=== PATIENT | female | born 1985 ===

== ENCOUNTER 2017-12-04 12:41 | Emergency (ER) | payer MEDICAID ==
[2017-12-04 12:41] VITALS: BMI 30.2
[2017-12-04 12:50] VITALS: RESP 16; TEMP 98.5
[2017-12-04] MEDS ORDERED: Sodium Chloride 0.9% 1,000 ML IV ONE (13:27)
[2017-12-04] MEDS ORDERED: Sodium Chloride 0.9% 1,000 ML ONE (13:36)
[2017-12-04 14:05] LABS: BASO # 0.1 K/uL (0.0-0.2); BASO % 1.2 % (0.0-2.0); EOS % 0.6 % (0.0-4.0); HCG,QUALITATIVE URINE NEGATIVE (NEGATIVE); HEMOGLOBIN 7.6 g/dL (11.0-16.0); LYMPH # 1.8 K/uL (1.0-4.3); LYMPH % 40.4 % (20.0-40.0); MEAN CELL VOLUME 67.9 fL (81.0-99.0); MEAN CORPUSCULAR HEMOGLOBIN 21.3 pg (27.0-31.0); MEAN CORPUSCULAR HGB CONC 31.4 g/dL (33.0-37.0); MEAN PLATELET VOLUME 7.5 fL (7.2-11.7); MONO # 0.3 K/uL (0.0-0.8); MONO % 6.6 % (0.0-10.0); NEUT # 2.3 K/uL (1.8-7.0); NEUT % 51.2 % (50.0-75.0); RBC 3.54 Mil/uL (3.80-5.20); RED CELL DISTRIBUTION WIDTH 15.9 % (11.5-14.5); WHITE BLOOD COUNT 4.4 K/uL (4.8-10.8)
[2017-12-04 14:11] LABS: SQUAMOUS EPITHIAL 1 /hpf (0-5); URINE BILIRUBIN NEGATIVE (NEGATIVE); URINE BLOOD 3+ (NEGATIVE); URINE CLARITY Clear (Clear); URINE COLOR Yellow (YELLOW); URINE GLUCOSE (UA) NORMAL (Normal); URINE LEUKOCYTE ESTERASE NEG Leu/uL (Negative); URINE PROTEIN NEGATIVE (NEGATIVE); URINE UROBILINOGEN NORMAL mg/dL (0.2-1.0)
[2017-12-04 14:20] LABS: ALB/GLOB RATIO 0.9 (1.0-2.1); ALBUMIN 4.1 g/dL (3.5-5.0); ALT/SGPT 76 U/L (9-52); AST/SGOT 66 U/L (14-36); BLOOD UREA NITROGEN 8 mg/dL (7-17); CALCIUM 9.1 mg/dl (8.6-10.4); GFR AFRICAN-AMERICAN > 60; GFR NON-AFRICAN AMERICAN > 60
[2017-12-04 15:04] VITALS: BP 133/78; PULSE 86; O2SAT 100
--- NOTE | 2017-12-04 15:21 | C.PDOC ---
History Of Present Illness 32 year old female, whose PMHx inlcudes hypothyroidism and anemia, presents to the ED for evaluation of a headache associated with dizziness and lightheadedness for 3 days. Denies h/o similar episodes. Notes her menses started 4 days ago, and her headache began the next day. Denies subjective neurological changes. Denies photophobia, nausea, vomiting, fever, chills, neck pain, weakness. Notes h/o anemia, took iron in the past though has not take them in 2 years. 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: no limitations Onset/Duration Of Symptoms: Days (3) Current Symptoms Are (Timing): Still Present Quality: Aching Associated Symptoms: denies: Nausea, Vomiting, Extremity Weakness Additional History Per: Patient Past Medical History Reviewed: Historical Data, Nursing Documentation, Vital Signs Vital Signs: Last Vital Signs Temp 98.5 F 12/04/17 15:04 Pulse 86 12/04/17 15:04 Resp 16 12/04/17 15:04 BP 133/78 12/04/17 15:04 Pulse Ox 100 12/04/17 22:11 - Medical History PMH: Hypothyroidism Surgical History: No Surg Hx Family History: States: Unknown Family Hx - Social History Hx Tobacco Use: No Hx Alcohol Use: No Hx Substance Use: No - Immunization History Hx Tetanus Toxoid Vaccination: No Hx Influenza Vaccination: No Hx Pneumococcal Vaccination: No Review Of Systems Constitutional: Negative for: Fever, Chills, Weakness Eyes: Negative for: Other (photophobia) Gastrointestinal: Negative for: Nausea, Vomiting Musculoskeletal: Negative for: Neck Pain Neurological: Positive for: Headache Physical Exam - Physical Exam Appears: Well, Non-toxic, No Acute Distress Skin: Normal Color, Warm, Dry Head: Atraumatic, Normacephalic Eye(s): bilateral: Normal Inspection, PERRL, EOMI Nose: Normal Oral Mucosa: Moist Neck: Normal ROM, Supple Chest: Symmetrical, No Deformity, No Tenderness Cardiovascular: Rhythm Regular Respiratory: Normal Breath Sounds, No Rales, No Rhonchi, No Wheezing Gastrointestinal/Abdominal: Soft, No Tenderness Extremity: Normal ROM, Capillary Refill (less than 2 seconds ) Neurological/Psych: Oriented x3, Normal Speech, Normal Cognition, Normal Cranial Nerves (2-12 grossly intact, no focal deficits) Gait: Steady ED Course And Treatment - Laboratory Results Result Diagrams: 12/04/17 13:48 12/04/17 13:48 O2 Sat by Pulse Oximetry: 100 (on RA) Pulse Ox Interpretation: Normal Progress Note: Bloodwork and urinalysis ordered and reviewed. Reglan PO, Toradol IVP, and IV Fluids administered. On re-exam, patient states she still feels dizzy and reports a room-spinning sensation. Meclizine PO administered. Patient recalls her hemoglobin was 5 when she was diagnosed with anemia. Patient has never undergone transfusion. On re-evaluation, patient is resting comfortably, is tolerating PO, and no longer has headache, neurologic deficit, photophobia, rash, fever, or nuchal rigidity. Steady gait. Case discussed with Dr. Mojica, who evaluated work up and agrees with plan and discharge. Patient was instructed to follow up with physician/clinic in 1-2 days. Disposition - Disposition Disposition: HOME/ ROUTINE Disposition Time: 15:17 Condition: STABLE Additional Instructions: Restart taking your iron medication. Follow up with your PMD tomorrow. Return to ER if symptoms persist or worsen. Reinicie tomando tran medicamento de darshana. Ifeanyi un seguimiento con tran PMD ma bertin. Regrese a la jocelyne de emergencias si los sntomas persisten o empeoran. 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 - Scribe Statement The provider has reviewed the documentation as recorded by the Scribe (Ana Lilia Blackmon) All medical record entries made by the Scribe were at my direction and personally dictated by me. I have reviewed the chart and agree that the record accurately reflects my personal performance of the history, physical exam, medical decision making, and the department course for this patient. I have also personally directed, reviewed, and agree with the discharge instructions and disposition.
== END 2017-12-04 15:28 | disposition home or self-care (01) ==
LOC: C.ER 12:41
DX: R51 Headache (principal)
CPT/HCPCS: 80053; 81001; 84443; 84703; 85025; 96361; 96374; 99284; J1885; J7030

== ENCOUNTER 2018-07-28 10:25 | Emergency (ER) | payer MEDICAID | END 2018-07-28 12:02 | disposition home or self-care (01) | LOC: C.ER 10:25 ==

== ENCOUNTER 2018-11-23 14:45 | Emergency (ER) | payer MEDICAID ==
[2018-11-23 14:45] VITALS: BMI 30.2
[2018-11-23 15:00] VITALS: BP 128/90; PULSE 90; RESP 17; TEMP 98.8; O2SAT 98
[2018-11-23] MEDS ORDERED: Amoxicillin-Clav 875-125 mg Tab PO STA (15:56)
[2018-11-23] MEDS ORDERED: Amoxicillin-Clav 875-125 mg Tab PO ONE (16:11)
--- NOTE | 2018-11-23 16:29 | C.PDOC ---
History Of Present Illness 33 year old female patient presents to the ER complaining of persistent cough for x3 weeks. Patient reports she initially had the symptom with sore throat but now she feels increase in congestion and pressure on her face and sinus. Patient denies fever, chills, headache, ear pain, chest pain, SOB, diarrhea and vomiting. Time Seen by Provider: 11/23/18 15:03 Chief Complaint (Nursing): ENT Problem History Per: Patient History/Exam Limitations: None Onset/Duration Of Symptoms: Days (x3 weeks) Current Symptoms Are (Timing): Still Present Past Medical History Reviewed: Historical Data, Nursing Documentation, Vital Signs Vital Signs: Last Vital Signs Temp 98.8 F 11/23/18 14:58 Pulse 90 11/23/18 14:58 Resp 17 11/23/18 14:58 BP 128/90 11/23/18 14:58 Pulse Ox 98 11/23/18 14:58 Primary Care Provider: Johnny Horne - Medical History PMH: Hypothyroidism Family History: States: Unknown Family Hx - Social History Hx Tobacco Use: No Hx Alcohol Use: No Hx Substance Use: No - Immunization History Hx Tetanus Toxoid Vaccination: No Hx Influenza Vaccination: No Hx Pneumococcal Vaccination: No Review Of Systems Except As Marked, All Systems Reviewed And Found Negative. Constitutional: Negative for: Fever ENT: Positive for: Throat Pain, Other (congestion and pressure of face and sinus ) Respiratory: Positive for: Cough Gastrointestinal: Negative for: Vomiting, Diarrhea Physical Exam - Physical Exam Appears: Non-toxic, No Acute Distress Skin: Warm, Dry, No Rash Head: Normacephalic, Tenderness (left-sided maxillary sinus ) Eye(s): bilateral: EOMI Ear(s): Bilateral: Normal Nose: Normal Oral Mucosa: Moist Throat: Normal, No Erythema, No Exudate Neck: Normal ROM, Supple Chest: Symmetrical, No Tenderness Cardiovascular: Rhythm Regular, No Friction Rub, No Murmur Respiratory: Normal Breath Sounds Gastrointestinal/Abdominal: Soft, No Tenderness Neurological/Psych: Oriented x3, Normal Speech, Normal Cognition Gait: Steady ED Course And Treatment O2 Sat by Pulse Oximetry: 98 (RA) Pulse Ox Interpretation: Normal Medical Decision Making Medical Decision Making: Plans: -- amoxicillin -- prednisone Disposition - Disposition Referrals: [facility] [Outside] [facility] [Outside] Disposition: HOME/ ROUTINE Disposition Time: 16:29 Condition: GOOD Additional Instructions: Follow up with the medical doctor within 1-2 days. Return if worsened. 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 - Scribe Statement The provider has reviewed the documentation as recorded by the Katya Dennison Do All medical record entries made by the Anishaibdiamond were at my direction and personally dictated by me. I have reviewed the chart and agree that the record accurately reflects my personal performance of the history, physical exam, medical decision making, and the department course for this patient. I have also personally directed, reviewed, and agree with the discharge instructions and disposition.
== END 2018-11-23 16:40 | disposition home or self-care (01) ==
LOC: C.ER 14:45
DX: J32.9 Chronic sinusitis, unspecified (principal)